=== PATIENT | male | born 1965 | race Caucasian/White ===

== ENCOUNTER 2018-02-20 07:22 | Outpatient (CLI) | payer BC, SELFPAY ==
[2018-02-20 08:12] LABS: HCT 41.2 % (40.0-50.0); Mean Corpuscular Hemoglobin 29.3 pg (27.0-33.0); Mean Corpuscular Volume 86.2 fL (80-95); Mean Platelet Volume 10.1 fL (8.0-11.0); Platelet Count 288 x1000/uL (130-400); RBC 4.78 m/cumm (4.50-6.00); RBC Distribution Width 13.6 % (11.8-14.1)
[2018-02-20 08:22] LABS: ALT 24 U/L (12-78); AST 16 U/L (15-37); Albumin 3.6 g/dL (3.4-5.0); Alkaline Phosphatase 132 U/L (46-116); Anion Gap 8.2 mmol/L (3-11); BUN 17 mg/dL (7-18); Bilirubin, Total 0.5 mg/dL (0.2-1.0); CO2 29.8 mmol/L (21.0-32.0); CREATININE 1.15 mg/dL (0.70-1.30); Calcium 8.9 mg/dL (8.5-10.1); Chloride 104 mmol/L (98-107); Cholesterol 128 mg/dL (50-200); Glucose 131 mg/dL (70-100); HDL Cholesterol 45 mg/dL (40-60); LDL CHOLESTEROL 67 mg/dL (<100); Potassium 4.2 mmol/L (3.5-5.1); Sodium 142 mmol/L (136-145); Total Protein 6.7 g/dL (6.4-8.2); Triglyceride 54 mg/dL (30-150)
[2018-02-20 08:30] LABS: COMMENT (LAB VIEW ONLY) 229.17 mg/dL; Microalb ug/mg Crea 110.8 ug/mg Cr
[2018-02-20 13:41] LABS: Hemoglobin A1C 8.2 % (4.5-6.2)
[2018-02-22 09:12] LABS: PSA, Screening 0.3 ng/ml (0-3.5)
== END 2018-02-20 07:42 ==
PROVIDERS: PCP Family Medicine; Visit Provider Family Medicine
DX: E78.2 Mixed hyperlipidemia (principal); I10 Essential (primary) hypertension; E11.40 Type 2 diabetes mellitus with diabetic neuropathy, unspecified; Z00.00 Encounter for general adult medical examination without abnormal findings; Z12.5 Encounter for screening for malignant neoplasm of prostate
CPT/HCPCS: 36415; 80053; 80061; 83721; 84153; 85027; 82043; 82570; 83036

== ENCOUNTER 2018-04-30 15:01 | Emergency (ER) | payer BC, SELFPAY ==
[2018-04-30 15:06] VITALS: BP 184/87; PULSE 101; O2SAT 97
[2018-04-30 15:24] VITALS: TEMP 37.3
[2018-04-30 15:32] LABS: Abs Immature Grans 0.01 k/cumm (0.0-0.09); Absolute Basophil Count 0.04 k/cumm (0.0-0.2); Absolute Eosinophil Count 0.83 k/cumm (0.0-0.7); Absolute Monocyte Count 1.06 k/cumm (0.11-0.7); Absolute Neutrophil Count 4.47 k/cumm (1.2-6.7); Basophils % 0.5; Eosinophils % 9.8; HCT 42.9 % (40.0-50.0); HGB 14.6 g/dL (13.5-17.5); Immature Grans % 0.1; Lymphocytes % 24.7; Mean Corpuscular Hemoglobin 29.3 pg (27.0-33.0); Mean Corpuscular Volume 86.1 fL (80-95); Mean Platelet Volume 10.3 fL (8.0-11.0); Monocytes % 12.5; Neutrophils % 52.4; Platelet Count 284 x1000/uL (130-400); RBC 4.98 m/cumm (4.50-6.00); RBC Distribution Width 13.7 % (11.8-14.1); White Blood Cell Count 8.51 k/cumm (4.4-10.8)
[2018-04-30] MEDS: Ketorolac 30 MG/ML VIAL 15 MG IVP (15:34)
--- NOTE | 2018-04-30 15:37 | NUR.NOTE ---
patient medicated per MD order Nursing Note:
[2018-04-30 15:55] LABS: Prothrombin Time 9.9 sec (9.3-11.0)
[2018-04-30 15:58] LABS: ALT 28 U/L (12-78); AST 13 U/L (15-37); Albumin 3.7 g/dL (3.4-5.0); Alkaline Phosphatase 132 U/L (46-116); Anion Gap 8.8 mmol/L (3-11); BUN 17 mg/dL (7-18); Bilirubin, Total 0.4 mg/dL (0.2-1.0); CO2 28.2 mmol/L (21.0-32.0); CREATININE 1.16 mg/dL (0.70-1.30); Calcium 8.7 mg/dL (8.5-10.1); Chloride 105 mmol/L (98-107); Glucose 176 mg/dL (70-100); Magnesium 1.8 mg/dL (1.8-2.4); Sodium 142 mmol/L (136-145); Total Protein 7.5 g/dL (6.4-8.2); Troponin I 0.02 ng/mL (0.00-0.06)
--- NOTE | 2018-04-30 16:00 | W.ED.GENAD ---
Discharge Plan Disposition Patient Disposition: HOME Condition: Good Discharge Details Chief Complaint: Chest Pain Clinical Impression: Chest pain, Muscle strain Primary Care Provider: Miguel Pal ED Provider: Skyler Cutler Home Meds and New Rx's Prescriptions: No Action Lantus U-100 Insulin 100 UNIT/1 ML solution 30 unit SQ BID RF: 0 simvastatin [Zocor] 10 MG tablet 20 mg PO HS RF: 0 Humalog U-100 Insulin 100 UNIT/1 ML cartridge 20 unit SQ .TID RF: 0 lisinopril 40 MG tablet 40 mg PO DAILY RF: 0 aspirin 325 MG tablet 650 mg PO DAILY RF: 0 Prilosec OTC 20 mg Tablet,Delayed Release (Dr/Ec) 40 mg PO DAILY RF: 0 Victoza 2-Zach 0.6 mg/0.1 mL (18 mg/3 mL) Pen Injector 18 mg subcut DAILY RF: 0 Discharge Instructions Instructions: Chest Pain (ED), Muscle Strain (ED) Additional Instructions: If you notice any worsening of your symptoms, or any new symptoms such as vomiting, diarrhea, fever, chills, shortness of breath, chest pain, numbness, weakness, or fainting , please return immediately to the emergency department for reevaluation. Please follow up with your primary care provider as soon as possible for reassessment and reevaluation. As always, it was a pleasure participating in your medical care today. Referrals: Miguel Pal [Primary Care Provider] - Medical Decision Making This is a 53-year-old male with a past medical history of hypertension, high cholesterol, diabetes and a family history of heart disease, who presents for left-sided chest pain that started this morning. He states that yesterday he had been doing a lot of activities pulling on wrenches, any thinks that this may have caused his symptoms. The pain is extremely mild, he describes it as very mild ache/odd sensation. It radiates down his left arm. There is no exertional component. He denies a history of significant tobacco abuse. Physical exam is unremarkable. Vital signs are stable and reassuring. Differential includes musculoskeletal strain, less likely PE, potential cardiac component, versus GI issue. We will perform a cardiac eval, get a d-dimer to rule in or rule out a PE. 7:22 PM Reevaluation after GI cocktail and Toradol the patient's pain is completely resolved. Serial EKGs and serial troponins are all within normal limits and show no significant abnormalities. CT angiogram was ordered secondary to an elevated d-dimer, there is no evidence of PE or other acute process. Signs and symptoms clinically consistent with musculoskeletal strain secondary to his activity the previous day, and inconsistent with ACS in addition to negative serial troponins, as well as the patient's heart score in the 0-3 range placing him in the lowest risk category feel he can be safely discharged home with close follow-up with his PCP. I have extensively reviewed the treatment plan and discharge instructions with the patient and their family. I have addressed all patient concerns at this time. The patient and family was made aware of what symptoms to monitor for that would warrant a return to the emergency department. Discussed the plan with the patient and family, they demonstrate verbal understanding and agreement with our assessment and plan at this time. EKG 15: 05 Rate 98, intervals normal, sinus rhythm, no significant ST elevations or depressions, questionable Q waves in lead III. No other abnormalities. EKG 18: 54 Rate 83, intervals normal, sinus rhythm, no ST elevations or depressions, no T wave inversions, questionable Q wave in lead III, no other abnormalities. Findings consistent with previous EKG peer FINDINGS: Pulmonary arteries: No pulmonary emboli. Aorta: No aortic aneurysm. No aortic dissection. Lungs: No airspace consolidation. Benign fissural nodule left lung apex. Minor chronic loss of height in the midthoracic spine associated with degenerative changes. No acute fracture or subluxation. Pleural space: No pneumothorax. No pleural effusion. Heart: No cardiomegaly. No pericardial effusion. Lymph nodes: No enlarged lymph nodes. Bones/joints: See Lungs Finding. Soft tissues: Minimal bilateral gynecomastia. IMPRESSION: 1. No pulmonary emboli are seen. 2. No acute findings. Dictated and Authenticated by: Angela Guy MD. HPI General Date/Time Provider Initiated Documentation: 04/30/18 15:05. HPI Narrative: This is a 53-year-old male with a past medical history of high cholesterol, hypertension, diabetes, who presents today for evaluation of chest pain. 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 This morning shortly after the patient awoke he developed some mild left-sided chest pain which she is unable to truly differentiate/described, however sounds do sound like a mild ache. It does radiate to his left arm. The pain came on when he was just sitting and resting. Pain is been continuous since then but extremely mild. There is no exertional component, and it is not changed when he gets up, walks around, or performs other activities. The patient denies any shortness of breath, cough, hemoptysis, fever, chills, neck or shoulder pain. He denies any history of cardiac disease. He does have a positive family history of cardiac disease. Denies PE risk factors such as recent long car rides, immobilization, recent surgery, prior history of DVT or PE, family history of PE or DVT, morbid obesity, exogenous estrogen and smoking, hemoptysis, history of cancer. Patient has no other complaints at this time. No other modifying factors. Related Data Home Medications Medication Instructions Recorded Confirmed insulin glargine [Lantus] 30 unit SQ BID 11/12/12 04/30/18 insulin lispro [Humalog] 20 unit SQ .TID 11/12/12 04/30/18 simvastatin [Zocor] 20 mg PO HS 11/12/12 04/30/18 lisinopril 40 mg PO DAILY 04/05/13 04/30/18 aspirin 650 mg PO DAILY 01/19/14 04/30/18 liraglutide [Victoza 2-Zach] 18 mg SUBCUT DAILY 04/30/18 04/30/18 omeprazole magnesium [Prilosec OTC] 40 mg PO DAILY 04/30/18 04/30/18 Allergies Allergy/AdvReac Type Severity Reaction Status Date / Time No Known Allergies Allergy Unverified 04/30/18 15:09 General Stated Complaint: Chest Pain KIMBERLY: 2 Review of Systems Review of Systems All systems reviewed & are unremarkable except as noted in HPI and below PFSH Social History Smoking and Tabacco status: Former Tobacco Use Exam Narrative Exam Narrative: 1.Const: Well-nourished, Well-developed, appearing stated age 2.Eyes: PERRL, no conjunctival injection, and symmetrical lids. 3.ENT: Atraumatic external nose and ears. Moist MM. Neck: Symmetric, trachea midline, No thyromegaly. 4.CVS: +S1/S2, No murmurs or gallops. Peripheral pulses 2+ and equal in all extremities. Brisk capillary refill in all extremities. 5.RESP: Unlabored respiratory effort. Clear to auscultation bilaterally. No wheezes rales or rhonchi 6.GI: Soft, Nontender/Nondistended, No hepatosplenomegaly. No guarding or rebound. 7.MSK: Normocephalic/Atraumatic, Extremities w/o deformity or ttp No cyanosis or clubbing, Normal movement of all extremities 8.Skin: Warm, Dry. No rashes or lesions. 9.Neuro: [place] [employer] II-XII grossly intact. Sensation grossly intact, no focal neurologic deficits. 10.Psych: (AAO) x3. Appropriate mood and affect Course Vital Signs Pulse 101 H 04/30/18 15:06 Blood Pressure 184/87 H 04/30/18 15:06 Pulse Oximetry 97 04/30/18 15:06 Temperature 37.3 C 04/30/18 15:24 Temperature Source Oral 04/30/18 15:24 Pulse 101 H 04/30/18 15:06 Respiratory Effort 04/30/18 15:24 Blood Pressure 184/87 H 04/30/18 15:06 Pulse Oximetry 97 04/30/18 15:06 Oxygen Delivery Method Room Air 04/30/18 15:06 Oxygen Flow Rate 0 04/30/18 15:06 Lab/Test Results Lab/Test Results: Laboratory Tests Range/Units 04/30/18 04/30/18 15:20 15:20 WBC (4.4-10.8) k/cumm 8.51 RBC (4.50-6.00) m/cumm 4.98 Hgb (13.5-17.5) g/dL 14.6 Hct (40.0-50.0) % 42.9 MCV (80-95) fL 86.1 MCH (27.0-33.0) pg 29.3 MCHC (32.0-36.0) g/dL 34.0 RDW (11.8-14.1) % 13.7 Plt Count (130-400) x1000/uL 284 MPV (8.0-11.0) fL 10.3 Immature Gran % 0.1 Neutrophils % 52.4 Lymphocytes % 24.7 Monocytes % 12.5 Eosinophils % 9.8 Basophils % 0.5 Absolute Neutrophils (1.2-6.7) k/cumm 4.47 Absolute Lymphocytes (1.2-3.4) k/cumm 2.10 Absolute Monocytes (0.11-0.7) k/cumm 1.06 H Absolute Eosinophils (0.0-0.7) k/cumm 0.83 H Absolute Basophils (0.0-0.2) k/cumm 0.04 PT (9.3-11.0) sec 9.9 INR (0.9-1.1) 1.0 APTT (21.0-31.4) sec 24.0
[2018-04-30 16:03] LABS: D-Dimer 513 ng/mlFEU (<500)
[2018-04-30] MEDS: Normal Saline 1,000 ML 1000 ML IV (16:17)
--- NOTE | 2018-04-30 18:06 | DI.CT_ITS ---
SYMPTOM/DIAGNOSIS: ELEVATED D DIMER, CHEST PAIN PE CHEST CT: CT angiography was performed with multi slice acquisition and multi planar and 3D reconstruction. The pulmonary arteries and aorta are well opacified with IV contrast. No aortic dissection or pulmonary emboli are seen. There is no mass, adenopathy, infiltrates or effusions. There is a hiatal hernia and question of lower esophageal thickening. No emphysematous or fibrotic changes are seen. There are degenerative changes in the spine. The visualized portions of the upper abdomen are unremarkable. IMPRESSION: No acute abnormality.
[2018-04-30] MEDS: Omnipaque 350 MG/ML 100 ML BTL IJ (18:21)
[2018-04-30 18:56] VITALS: BP 171/93; PULSE 88; RESP 17; O2SAT 95
--- NOTE | 2018-04-30 18:57 | NUR.NOTE ---
patient denies chest pain, labs sent ekg done Nursing Note:
--- NOTE | 2018-04-30 18:58 | DI.VRAD_ITS ---
EXAM: CT Angiography Chest With Contrast EXAM DATE/TIME: 04/30/2018 4:10 PM CLINICAL HISTORY: 53 years old, male; Pain and abnormal findings; Abnormal diagnostic tests; Elevated d-dimer; Chest pain; Type not specified; Patient HX: Cp/ elevated d-dimer TECHNIQUE: Axial computed tomographic angiography images of the chest with intravenous contrast using CT angiography protocol. All CT scans at this facility use at least one of these dose optimization techniques: automated exposure control; mA and/or kV adjustment per patient size (includes targeted exams where dose is matched to clinical indication); or iterative reconstruction. Coronal and sagittal reformatted images were created and reviewed. MIP reconstructed images were created and reviewed. CONTRAST: Contrast Material: 100 ml of omni 350; Contrast Route: iv COMPARISON: CR ABD FLAT UPRIGHT PA CHEST 04/05/2013 10:38 AM FINDINGS: Pulmonary arteries: No pulmonary emboli. Aorta: No aortic aneurysm. No aortic dissection. Lungs: No airspace consolidation. Benign fissural nodule left lung apex. Minor chronic loss of height in the midthoracic spine associated with degenerative changes. No acute fracture or subluxation. Pleural space: No pneumothorax. No pleural effusion. Heart: No cardiomegaly. No pericardial effusion. Lymph nodes: No enlarged lymph nodes. Bones/joints: See Lungs Finding. Soft tissues: Minimal bilateral gynecomastia. IMPRESSION: 1. No pulmonary emboli are seen. 2. No acute findings. Dictated and Authenticated by: Angela Guy MD. Ordering:AMERICA Holland MD
[2018-04-30 19:12] LABS: Troponin I 0.02 ng/mL (0.00-0.06)
[2018-04-30 19:38] VITALS: BP 156/77; PULSE 81; RESP 17; TEMP 36.5; O2SAT 96
== END 2018-04-30 19:38 | disposition home or self-care (01) ==
PROVIDERS: Emergency Provider Student in an Organized Health Care Education/Training Program; PCP Family Medicine
DX: R07.9 Chest pain, unspecified (principal); S29.011A Strain of muscle and tendon of front wall of thorax, initial encounter; X50.9XXA Other and unspecified overexertion or strenuous movements or postures, initial encounter; R79.1 Abnormal coagulation profile; E11.9 Type 2 diabetes mellitus without complications; Z79.4 Long term (current) use of insulin; I10 Essential (primary) hypertension
CPT/HCPCS: 36415; 71275; 80053; 93005; 96361; 96374; 99285; 83735; 84484; 85025; 85379; 85610; 85730; 93010; J1885; J3490

== ENCOUNTER 2018-09-11 07:05 | Outpatient (CLI) | payer BC, SELFPAY ==
[2018-09-11 07:39] LABS: HCT 40.8 % (40.0-50.0); HGB 13.8 g/dL (13.5-17.5); Mean Corp. HGB Concentration 33.8 g/dL (32.0-36.0); Mean Corpuscular Hemoglobin 29.4 pg (27.0-33.0); Mean Platelet Volume 10.6 fL (8.0-11.0); Platelet Count 298 x1000/uL (130-400); RBC 4.69 m/cumm (4.50-6.00); RBC Distribution Width 14.2 % (11.8-14.1); White Blood Cell Count 7.46 k/cumm (4.4-10.8)
[2018-09-11 07:59] LABS: Hemoglobin A1C 7.9 % (4.5-6.2)
[2018-09-11 08:11] LABS: COMMENT (LAB VIEW ONLY) 208.56 mg/dL; Microalb ug/mg Crea 94.9 ug/mg Cr
[2018-09-11 08:39] LABS: ALT 22 U/L (12-78); AST 13 U/L (15-37); Albumin 3.5 g/dL (3.4-5.0); Alkaline Phosphatase 134 U/L (46-116); Anion Gap 11.4 mmol/L (3-11); BUN 19 mg/dL (7-18); Bilirubin, Total 0.5 mg/dL (0.2-1.0); CO2 26.6 mmol/L (21.0-32.0); CREATININE 1.03 mg/dL (0.70-1.30); Calculated LDL 81 mg/dL; Chloride 107 mmol/L (98-107); Cholesterol 132 mg/dL (50-200); Glucose 131 mg/dL (70-100); HDL Cholesterol 38 mg/dL (40-60); Potassium 4.3 mmol/L (3.5-5.1); Sodium 145 mmol/L (136-145); Total Protein 6.7 g/dL (6.4-8.2); Triglyceride 69 mg/dL (30-150)
== END 2018-09-11 07:25 ==
PROVIDERS: PCP Family Medicine; Visit Provider Family Medicine
DX: I10 Essential (primary) hypertension (principal); E78.2 Mixed hyperlipidemia; E11.40 Type 2 diabetes mellitus with diabetic neuropathy, unspecified
CPT/HCPCS: 36415; 80053; 80061; 83721; 85027; 82043; 82570; 83036

== ENCOUNTER 2021-05-27 13:21 | Outpatient (CLI) | payer BC, SELFPAY ==
--- NOTE | 2021-05-27 13:00 | DI.RAD_ITS ---
Exam(s) XR KNEE LT 2V AP,LAT EXAM: XR KNEE LT 2V AP,LAT CLINICAL HISTORY: LEFT KNEE PAIN TECHNIQUE: COMPARISON: No exams were available for comparison FINDINGS: Two views were obtained. There is a mildly displaced mildly comminuted fracture of the proximal fibu la. Note is also made of questionable deformity of the posterior aspect of the proximal tibia, tibia l fracture not excluded. No prior films available for comparison at this time, please correlate with known trauma history. Additional evaluation with CT may be considered to evaluate the proximal tibi a if clinically appropriate. IMPRESSION: RADIATION DOSE DELIVERED: Total DLP
== END 2021-05-27 13:22 | disposition home or self-care (01) ==
LOC: DIORS 13:21
PROVIDERS: PCP Family Medicine; Referring Provider Family Medicine; Visit Provider Student in an Organized Health Care Education/Training Program
DX: M25.562 Pain in left knee (principal); S82.452A Displaced comminuted fracture of shaft of left fibula, initial encounter for closed fracture; M21.862 Other specified acquired deformities of left lower leg; X58.XXXA Exposure to other specified factors, initial encounter
CPT/HCPCS: 73560

== ENCOUNTER 2021-05-27 15:01 | Outpatient (CLI) | payer BC, SELFPAY ==
--- NOTE | 2021-05-27 14:30 | DI.MRI_ITS ---
Exam(s) MR LOWER JOINT LT WO EXAM: MR LOWER JOINT LT WO CLINICAL HISTORY: Knee dislocation,lt acl tear,s83.105a,s83.512a. TECHNIQUE: Multiplanar multisequence MRI was performed. COMPARISON: CR XR KNEE LT 2V AP,LAT from 05/27/2021 FINDINGS: Exam is somewhat limited by patient motion. BONES: Proximal fibular fracture seen on plain films not included in the field of view of the MRI. S mall fracture posteromedial aspect of the medial tibial plateau, at the level of the medial meniscus, involving a small portion of the articular surface. JOINTS: Articular cartilage of patella is unremarkable. Cartilage defect at site of small lateral ti bial plateau fracture. Small to moderate effusion is present. TENDONS: Extensor mechanism: Unremarkable. Medial retinaculum: Disrupted. Lateral retinaculum: Unremarkable. Popliteus: Unremarkable. MUSCLES: Unremarkable. MENISCI: The evaluation of the menisci is somewhat limited due to significant motion artifact. The m edial meniscus is peripherally displaced and shows a a large amount of abnormal high signal. The the re is significant intrasubstance edema. There is a tear at the root of the meniscus. No definite di splaced fragment.. The posterior horn of the lateral meniscus shows a large amount of abnormal signa l and has an indistinct appearance. SOFT TISSUES: Large amount of soft tissue edema. Greatest amount of fluid seen anteromedially at the level of the distal femur. LIGAMENTS: Anterior Cruciate: Not seen. Proximal tibia positioned more anteriorly than normal. Posterior Cruciate: Marked amount of edema. Indistinct fibers highly suspicious for full-thickness t ear. Medial Collateral:Disrupted at femoral attachment. Small significant surrounding edema. Lateral Collateral ligaments: Unremarkable. IMPRESSION: Disruption of the anterior and posterior cruciate ligaments as well medial collateral ligament and me dial patellar retinaculum. Small fracture posteromedial aspect of the medial tibial plateau. Tears of both posterior horns of the the menisci. Tear of the root of the posterior horn of the medi al meniscus. DATA REPOSITORY:
--- NOTE | 2021-05-27 16:50 | DI.VRAD_ITS ---
PROCEDURE INFORMATION: Exam: MR Left Lower Extremity Joint Without Contrast, Knee Exam date and time: 05/27/2021 3:04 PM Age: 56 years old Clinical indication: Injury or trauma; Fall; Dislocation and fracture, traumatic; Patella or knee; Left; Other: Comminuted; Fibula; Injury date: 05/23/21 TECHNIQUE: Imaging protocol: MR of the Left lower extremity joint without contrast. Exam focused on the knee. COMPARISON: CR XR KNEE LT 2V AP,LAT 05/27/2021 1:12 PM FINDINGS: Bones and cartilage: Full-thickness tearing of the medial patellar retinaculum. Minimally depressed fracture contusion of the posterolateral tibial plateau. 4 mm calcified loose body in the medial gastrocnemius recess. Joint spaces: Moderate knee joint effusion. Moderate knee joint effusion. Medial meniscus: Complete tear of the posterior horn of the medial meniscus near its root attachment. The body and posterior horn of the medial meniscus are peripherally extruded and there is globular increased T2 signal in the extruded portion of the meniscus. Lateral meniscus: Complete tear of the posterior horn of the lateral meniscus from its root attachment with peripheral extrusion of the body of the lateral meniscus. Anterior cruciate ligament: Complete full-thickness tear of the anterior cruciate ligament. Posterior cruciate ligament: Full-thickness tear of the distal posterior cruciate ligament. Medial capsule and supporting structures: Full-thickness tear of the medial collateral ligament with proximal retraction of the torn fibers. Lateral capsule and supporting structures: Heterogeneous appearance of the proximal lateral collateral ligament consistent with partial tearing. Extensor mechanism of knee: Unremarkable. No tear. Muscles: Unremarkable. Soft tissues: Marked diffuse soft tissue edema. Marked cellulitis over the anterior aspect of the knee. Other findings: Exam is degraded by motion. IMPRESSION: 1. Complete tears of the ACL and PCL 2. Complete tears of the posterior horns of the medial and lateral menisci near the root attachment 3. Full-thickness tear of the distal fibers of the medial collateral ligament with proximal retraction 4. Full-thickness tear medial patellar retinaculum 5. Slightly depressed fracture contusion posterolateral tibial plateau. 6. Partial tearing lateral collateral ligament. 7. Marked diffuse soft tissue edema Dictated and Authenticated by: Yoana Zheng MD. Ordering:LINO Perez MD
== END 2021-05-27 15:21 ==
PROVIDERS: PCP Family Medicine; Visit Provider Student in an Organized Health Care Education/Training Program
DX: S83.512A Sprain of anterior cruciate ligament of left knee, initial encounter; S83.522A Sprain of posterior cruciate ligament of left knee, initial encounter; S83.412A Sprain of medial collateral ligament of left knee, initial encounter; S82.142A Displaced bicondylar fracture of left tibia, initial encounter for closed fracture; X58.XXXA Exposure to other specified factors, initial encounter; S83.212A Bucket-handle tear of medial meniscus, current injury, left knee, initial encounter
CPT/HCPCS: 73721

== ENCOUNTER 2021-06-05 02:19 | Outpatient (CLI) | payer BC, SELFPAY ==
[2021-06-05 12:04] LABS: Source Nasal/Nares
[2021-06-05 14:26] LABS: COVID-19 PCR Negative (Negative)
--- NOTE | 2021-06-07 03:59 | W.ED.EVENT ---
Date of service: 06/07/21 Time of Service: 03:59 Event Note: We are contacted [facility] for medical control. This evening per [facility] the patient had an episode of chest pain at home, and then fell down unresponsive. CPR was started upon EMS arrival. Per report roughly 30 minutes of CPR were performed, multiple rounds of epinephrine were administered. Patient has been in asystole during the entire episode per EMS. No cardiac activity noted. Medical control was contacted. Discussion was had about halting CPR. After review of the history, I do agree with EMSs assessment, and feel that this would be a reasonable next step given the notable amount of medical care that has been given already without any improvement, ROSC, or other change. Time Spent with Patient Time spent in critical care(minutes): 0 Time Spent Included: Discussing critically ill care with other medical staff
== END 2021-06-05 02:20 | disposition home or self-care (01) ==
LOC: LBO 02:19
PROVIDERS: PCP Family Medicine; Visit Provider Student in an Organized Health Care Education/Training Program
DX: Z20.822 Contact with and (suspected) exposure to COVID-19 (principal); Z01.818 Encounter for other preprocedural examination
CPT/HCPCS: 87635